=== PATIENT | male | born 1985 | race Caucasian/White ===

== ENCOUNTER 2023-09-02 04:42 | Emergency (ER) | payer OTHER ==
[~2023-09-02] VITALS: Ht 180.3 cm; Wt 78.0 kg
[2023-09-02 05:08] VITALS: BP_SYST 127; PULSE 93; RESP 20; TEMP 97.1; O2SAT 95
[2023-09-02] MEDS: KETOROLAC TROMETHAMINE 30 MG VIAL IM ONE (05:42)
[2023-09-02 06:47] LABS: BASOPHILS # (AUTO) 0.1 K/uL (0.0-0.2); BASOPHILS % (AUTO) 0.5 % (0.0-2.0); EOSINOPHILS # (AUTO) 0.2 K/uL (0.0-0.4); EOSINOPHILS % (AUTO) 1.8 % (0.0-4.0); HEMATOCRIT 40.6 % (36-54); HEMOGLOBIN 13.5 g/dL (14.0-18.0); LYMPHOCYTES # (AUTO) 2.7 K/uL (1.0-5.5); LYMPHOCYTES % (AUTO) 23.8 % (20.5-51.5); MEAN CORPUSCULAR HEMOGLOBIN 27 pg (27-31); MEAN CORPUSCULAR HGB CONC 33 % (32-36); MEAN CORPUSCULAR VOLUME 81 fL (79.0-98.0); MONOCYTES # (AUTO) 1.2 K/uL (0.0-1.0); MONOCYTES % (AUTO) 10.5 % (1.7-9.3); NEUTROPHILS # (AUTO) 7.2 K/uL (1.8-7.7); NEUTROPHILS % (AUTO) 63.4 % (40.0-70.0); PLATELET COUNT (AUTO) 442 K/uL (130-430); RED BLOOD CELL COUNT(AUTO) 4.99 MIL/uL (4.2-6.2); RED CELL DISTRIBUTION WIDTH 14.2 % (9.0-15.0); WHITE BLOOD COUNT (AUTO) 11.3 K/uL (4.8-10.8)
[2023-09-02 07:11] LABS: ANION GAP 11 (5-15); CALCIUM 8.8 mg/dL (8.4-11.0); CARBON DIOXIDE 27 mmol/L (23-29); CHLORIDE 101 mmol/L (98-107); CREATININE 1.04 mg/dL (0.55-1.30); GFR AFRICAN AMERICAN 103 mL/min (>90); GLUCOSE 96 mg/dL (74-106); POTASSIUM 3.8 mmol/L (3.5-5.1); SODIUM SERUM 139 mmol/L (136-145); UREA NITROGEN, BLOOD 20 mg/dL (8-21)
[2023-09-02 07:33] LABS: GFR NON AFRICAN-AMERICAN 85 mL/min (>90)
[2023-09-02] MEDS ORDERED: IBUP-1969 PO (08:25)
[2023-09-02] MEDS ORDERED: LIDO700A30 TP (08:25)
[2023-09-02 08:43] VITALS: BP_SYST 133; PULSE 89; RESP 18; TEMP 98.7; O2SAT 97
== END 2023-09-02 08:45 | disposition home or self-care (01) ==
LOC: SED 04:42
DX: M54.50 Low back pain, unspecified (principal); R07.81 Pleurodynia; R06.02 Shortness of breath; F12.90 Cannabis use, unspecified, uncomplicated; Z79.899 Other long term (current) drug therapy
CPT/HCPCS: 99285; 71046; 80048; 85025; 85379; 84484; 36415; 93005; 96372; J1885